=== PATIENT | female | born 1995 | race Caucasian/White ===

== ENCOUNTER 2021-08-25 13:07 | Inpatient (IN) ==
[~2021-08-25 13:07] MED LIST: Famotidine 20 MG/2 ML VIAL IVP PRN; Metoclopramide 10 MG/2 ML VIAL IVP PRN; Naloxone 0.4 MG/ML INJ IVP PRN
[2021-08-25] MEDS ORDERED: 0.9 % Sodium Chloride 1,000 ML IVC SCH (13:15)
[2021-08-25] MEDS: Betamethasone Acet/SodPhos 30 MG/5 ML VIAL IM SCH (13:33)
[2021-08-25 14:53] LABS: Basophils # 0.1 K/mcL (0.0-0.2); Basophils % 0.6 %; Eosinophils # 0.2 K/mcL (0.0-0.6); Eosinophils % 1.1 %; Hematocrit 42.4 % (35.3-44.9); Hemoglobin 13.8 g/dL (11.5-15.4); Immature Granulocytes % 1.6 % (0-4); Lymphocytes # 1.9 K/mcL (0.6-4.6); Mean Corpuscular HGB Conc 32.5 g/dL (31.6-35.5); Mean Corpuscular Hemoglobin 31.3 pg (28.0-33.3); Mean Corpuscular Volume 96.1 fL (83.0-100.0); Mean Platelet Volume 11.9 fL (9.4-12.4); Monocytes # 0.7 K/mcL (0.0-1.3); Monocytes % 5.1 %; Neutrophils # 10.6 K/mcL (1.6-8.9); Platelet Count 199 K/mcL (140-400); Red Blood Count 4.41 M/mcL (3.82-4.97); Segmented Neutrophils % 77.6 %; White Blood Count 13.7 K/mcL (4.3-11.1)
[2021-08-25 15:00] LABS: Amphetamine Screen,Urine Negative ng/mL (Cutoff=1000); Barbiturate Screen,Urine Negative ng/mL (Cutoff=200); Benzodiazepines Screen,Urine Negative ng/mL (Cutoff=200); Cannabinoid Screen,Urine Negative ng/mL (Cutoff = 50); Cocaine Screen,Urine Negative ng/mL (Cutoff= 300); Opiate Screen,Urine Negative ng/mL (Cutoff=300); Phencyclidine Screen,Urine Negative ng/mL (Cutoff=25)
[2021-08-26] MEDS: Betamethasone Acet/SodPhos 30 MG/5 ML VIAL IM SCH (08:14)
== END 2021-08-26 08:30 | disposition home or self-care (01) | DRG 833 ==
LOC: 1NENULAB
PROVIDERS: ADMIT Obstetrics & Gynecology; ATTEND Obstetrics & Gynecology

== ENCOUNTER → 2021-09-08 23:25 | Observation (INO) | END | disposition home or self-care (01) | LOC: 1NENULAB | PROVIDERS: ADMIT Student in an Organized Health Care Education/Training Program; ATTEND Student in an Organized Health Care Education/Training Program ==

== ENCOUNTER 2021-09-12 11:48 | Inpatient (IN) ==
[2021-09-12 11:39] LABS: Basophils # 0.1 K/mcL (0.0-0.2); Basophils % 0.4 %; Eosinophils # 0.1 K/mcL (0.0-0.6); Eosinophils % 1.2 %; Hemoglobin 13.5 g/dL (11.5-15.4); Immature Granulocytes % 1.5 % (0-4); Lymphocytes % 17.2 %; Mean Corpuscular HGB Conc 33.8 g/dL (31.6-35.5); Mean Corpuscular Hemoglobin 31.3 pg (28.0-33.3); Mean Corpuscular Volume 92.6 fL (83.0-100.0); Mean Platelet Volume 11.2 fL (9.4-12.4); Monocytes # 0.6 K/mcL (0.0-1.3); Monocytes % 5.6 %; Neutrophils # 8.4 K/mcL (1.6-8.9); Platelet Count 197 K/mcL (140-400); Red Blood Count 4.32 M/mcL (3.82-4.97); Segmented Neutrophils % 74.1 %; White Blood Count 11.3 K/mcL (4.3-11.1)
[~2021-09-12 11:48] MED LIST changes: +*HR* Nalbuphine 10 MG/ML AMPUL IV PRN; +Azithromycin 500 MG in 0.9 % Sodium Chloride 250 ML IVPB PRN; +Ondansetron 4 MG/2 ML VIAL IVP PRN; +Oxytocin 30 UNIT/503 ML BAG IVC SCH; +Ringers Solution, Lactated 1,000 ML IVC SCH
[2021-09-12 12:19] LABS: Amphetamine Screen,Urine Negative ng/mL (Cutoff=1000); Barbiturate Screen,Urine Negative ng/mL (Cutoff=200); Benzodiazepines Screen,Urine Negative ng/mL (Cutoff=200); Cannabinoid Screen,Urine Negative ng/mL (Cutoff = 50); Cocaine Screen,Urine Negative ng/mL (Cutoff= 300); Opiate Screen,Urine Negative ng/mL (Cutoff=300); Phencyclidine Screen,Urine Negative ng/mL (Cutoff=25)
[2021-09-12] MEDS ORDERED: EPHEDrine 50 MG/ML VIAL IVP PRN (12:36)
[2021-09-12] MEDS ORDERED: Ropivacaine/PF 0.2% 20 ML VIAL EP ONE (12:36)
[2021-09-12] MEDS ORDERED: *HR* FentaNYL (PF) 100 MCG/2 ML VIAL EP ONE (12:36)
[2021-09-12] MEDS ORDERED: Epidural Premix (fent/bupiv) 110 ML EP SCH (12:45)
[2021-09-12] MEDS ORDERED: Measles/Mumps/Rubella Vacc 0.5 ML VIAL SQ PRN (18:36)
[2021-09-12] MEDS ORDERED: Oxytocin 30 UNIT/503 ML BAG IVC SCH (18:36)
[2021-09-12] MEDS ORDERED: Benzocaine/Menthol 56 GM AEROSOL SPRAY TP PRN (18:36)
[2021-09-12] MEDS ORDERED: Ondansetron ODT 4 MG TAB.RAPDIS SL PRN (18:36)
[2021-09-12] MEDS ORDERED: Lanolin 7 G OINT...G. TP PRN (18:36)
[2021-09-12] MEDS: Acetaminophen 325 MG TABLET PO SCH (19:56)
[2021-09-12] MEDS: Ibuprofen 600 MG TABLET PO SCH (22:16)
[2021-09-13] MEDS: Acetaminophen 325 MG TABLET PO SCH ×4 (02:58→17:30)
[2021-09-13] MEDS: Ibuprofen 600 MG TABLET PO SCH ×3 (02:58→17:30)
[2021-09-13 03:25] LABS: Basophils % 0.3 %; Eosinophils # 0.1 K/mcL (0.0-0.6); Eosinophils % 0.4 %; Hematocrit 35.5 % (35.3-44.9); Hemoglobin 11.8 g/dL (11.5-15.4); Immature Granulocytes % 0.9 % (0-4); Lymphocytes % 15.2 %; Mean Corpuscular HGB Conc 33.2 g/dL (31.6-35.5); Mean Corpuscular Hemoglobin 31.5 pg (28.0-33.3); Mean Corpuscular Volume 94.7 fL (83.0-100.0); Mean Platelet Volume 11.3 fL (9.4-12.4); Monocytes % 7.3 %; Neutrophils # 10.1 K/mcL (1.6-8.9); Platelet Count 156 K/mcL (140-400); Red Blood Count 3.75 M/mcL (3.82-4.97); Segmented Neutrophils % 75.9 %; White Blood Count 13.3 K/mcL (4.3-11.1)
[2021-09-13] MEDS ORDERED: Prenatal Vit/FA 1 EACH TABLET PO SCH (09:00)
[2021-09-13] MEDS ORDERED: NON-FORMULARY MEDICATION 1 EACH EACH (Prenatal Vits96/Iron Fum/Folic [Prenatal Tablet] 1 E PO SCH (09:00)
[2021-09-13 18:33] VITALS: TEMP 98.5
[2021-09-14 05:25] VITALS: BP 113/74; PULSE 80; O2SAT 98
== END 2021-09-13 18:38 | disposition home or self-care (01) | DRG 807 ==
LOC: 1NENULAB → 1NENUOBS 21:00
PROVIDERS: ADMIT Obstetrics & Gynecology; ATTEND Obstetrics & Gynecology